=== PATIENT | female | born 1970 | race Caucasian/White ===

== ENCOUNTER 2017-05-27 13:32 | Observation (INO) | payer SELFPAY ==
[2017-05-27] VITALS (12 sets, daily range): BP systolic 129–250; BP diastolic 61–116; PULSE 63–93; RESP 16–24; TEMP 97.9–98.6; O2SAT 97–100
[2017-05-27 14:28] LABS: AUTOMATED NEUTROPHIL # 3.7 TH/MM3 (1.8-7.7); BASOPHIL % 0.8 % (0.0-2.0); EOSINOPHIL # 0.2 TH/MM3 (0-0.4); EOSINOPHIL % 2.7 % (0.0-4.0); HEMATOCRIT 43.3 % (35.0-46.0); HEMO FLAGS DIFF FINAL; LYMPH % 27.1 % (9.0-44.0); LYMPHOCYTE # 1.6 TH/MM3 (1.0-4.8); MEAN CELL VOLUME 98.5 FL (80.0-100.0); MEAN CORPUSCULAR HEMOGLOBIN 33.9 PG (27.0-34.0); MEAN CORPUSCULAR HGB CONC 34.4 % (32.0-36.0); MONO % 7.5 % (0.0-8.0); NEUT % 61.9 % (16.0-70.0); PLATELET COUNT 250 TH/MM3 (150-450); RED BLOOD COUNT 4.39 MIL/MM3 (4.00-5.30); RED CELL DISTRIBUTION WIDTH 12.1 % (11.6-17.2); WHITE BLOOD COUNT 5.9 TH/MM3 (4.0-11.0)
[2017-05-27] MEDS ORDERED: LISI-515 PO (14:32)
[2017-05-27 14:40] LABS: APTT (PATIENT) 23.2 SEC (24.3-30.1); INTERNATIONAL NORMALIZED RATIO 0.9 RATIO; PROTHROMBIN TIME - PATIENT 10.4 SEC (9.8-11.6)
[2017-05-27 14:41] LABS: ANION GAP 5 MEQ/L (5-15); BICARBONATE 28.5 MEQ/L (21.0-32.0); BLOOD UREA NITROGEN 10 MG/DL (7-18); CHLORIDE 103 MEQ/L (98-107); GLOMERULAR FILTRATION RATE 91 ML/MIN (>89); MAGNESIUM 1.9 MG/DL (1.5-2.5); POTASSIUM 3.5 MEQ/L (3.5-5.1); SODIUM (NA) 136 MEQ/L (136-145)
[2017-05-27 14:51] LABS: CREATINE KINASE 60 U/L (26-192)
--- NOTE | 2017-05-27 14:54 | RADRPT ---
EXAM DATE/TIME: 05/27/2017 14:17 [facility] COMPARISON: No previous studies available for comparison. INDICATIONS : Chest pain, anxiety, shaking, headache today MEDICAL HISTORY : None. SURGICAL HISTORY : None. ENCOUNTER: Initial ACUITY: 1 day PAIN SCORE: 9/10 LOCATION: Bilateral chest FINDINGS: PA and lateral views of the chest demonstrate the lungs to be symmetrically aerated without evidence of mass, infiltrate or effusion. The cardiomediastinal contours are unremarkable. Osseous structure s are intact. CONCLUSION: No acute disease. Wojciech Agudelo Jr., MD on May 27, 2017 at 14:51 Board Certified Radiologist. This report was verified electronically.
[2017-05-27] MEDS ORDERED: hydrALAZINE HCL 20 MG/ML VIAL IV PUSH ONE ×2 (15:45→16:45)
--- NOTE | 2017-05-27 16:17 | PD ---
HPI Chief Complaint: Chest Pain Time Seen by Provider: 15:25 Travel History International Travel<30 days: No Contact w/Intl Traveler<30days: No Traveled to known affect area: No History of Present Illness HPI Patient is a 46-year-old female presenting to emergency department for evaluation of blurred vision, headache, chest pain. Patient states that at approximately 10:30 this morning she started feeling shaky, experience the chest and arm pain along with the blurred vision and headache she checked her blood pressure, it was elevated which it has been for the last year. Patient has been taking her 's lisinopril 20 mg at night. The pain is substernal and radiates to both of her arms. She reports the pain is a 7 out of 10. Due to the high blood pressure this morning she took an extra 30 mg of lisinopril and when that did not help she presented to the emergency department. Patient has no primary doctor, she Is a significant past medical history but has a a 20+ year history of smoking. [facility] Past Medical History Hypertension: Yes ?: Unknown Past Surgical History Surgical History: No Previous Surgery Social History Alcohol Use: Yes (6 ppd) Tobacco Use: Yes (quit 2 years ago) Substance Use: No Allergies-Medications (Allergen,Severity, Reaction): Coded Allergies: hydrocodone (Verified Allergy, Intermediate, 05/27/17) morphine (Verified Allergy, Intermediate, 05/27/17) oxycodone (Verified Allergy, Intermediate, 05/27/17) Reported Meds & Prescriptions Reported Meds & Active Scripts Active Reported Lisinopril 20 Mg Tab 20 Mg PO DAILY Review of Systems Except as stated in HPI: all other systems reviewed are Neg Eyes: Positive: Blurred Vision HENT: Positive: Headaches Cardiovascular: Positive: Chest Pain or Discomfort Respiratory: Positive: Shortness of Breath Gastrointestinal: No: Nausea, Abdominal Pain Musculoskeletal: No: Myalgias Neurologic: No: Weakness, Dizziness, Syncope Physical Exam Narrative GENERAL: Overweight, well-developed, alert female. Resting in no acute distress. SKIN: Warm and dry. HEAD: Atraumatic. Normocephalic. EYES: Pupils equal and round. No scleral icterus. No injection or drainage. ENT: No nasal bleeding or discharge. Mucous membranes pink and moist. NECK: Trachea midline. No JVD. CARDIOVASCULAR: Regular rate and rhythm. RESPIRATORY: No accessory muscle use. Clear to auscultation. Breath sounds equal bilaterally. GASTROINTESTINAL: Abdomen soft, non-tender, nondistended. Hepatic and splenic margins not palpable. MUSCULOSKELETAL: Extremities without clubbing, cyanosis, or edema. No obvious deformities. NEUROLOGICAL: Awake and alert. No obvious cranial nerve deficits. Motor grossly within normal limits. Five out of 5 muscle strength in the arms and legs. Normal speech. PSYCHIATRIC: Appropriate mood and affect; insight and judgment normal. Data Data Last Documented VS Vital Signs Date Time Temp Pulse Resp B/P (MAP) Pulse Ox O2 Delivery O2 Flow Rate FiO2 05/27/17 18:19 88 176/87 (116) 05/27/17 15:03 16 100 05/27/17 14:54 Room Air 05/27/17 13:34 98.5 Orders Orders Electrocardiogram (05/27/17 13:49) Basic Metabolic Panel (Bmp) (05/27/17 13:49) Ckmb (Isoenzyme) Profile (05/27/17 13:49) Complete Blood Count With Diff (05/27/17 13:49) Magnesium (Mg) (05/27/17 13:49) Prothrombin Time / Inr (Pt) (05/27/17 13:49) Act Partial Throm Time (Ptt) (05/27/17 13:49) Troponin I (05/27/17 13:49) Lipase (05/27/17 13:49) Chest, Pa & Lat (05/27/17 13:49) Hydralazine Inj (Apresoline Inj) (05/27/17 15:45) Ct Brain W/O Iv Contrast(Rout) (05/27/17 ) Ed Urine Pregnancytest Poc (05/27/17 16:11) Hydralazine Inj (Apresoline Inj) (05/27/17 16:45) Ketorolac Inj (Toradol Inj) (05/27/17 18:00) Diphenhydramine Inj (Benadryl Inj) (05/27/17 18:00) Admit Order (Ed Use Only) (05/27/17 18:29) Labs Laboratory Tests Test 05/27/17 14:05 White Blood Count 5.9 TH/MM3 Red Blood Count 4.39 MIL/MM3 Hemoglobin 14.9 GM/DL Hematocrit 43.3 % Mean Corpuscular Volume 98.5 FL Mean Corpuscular Hemoglobin 33.9 PG Mean Corpuscular Hemoglobin Concent 34.4 % Red Cell Distribution Width 12.1 % Platelet Count 250 TH/MM3 Mean Platelet Volume 7.7 FL Neutrophils (%) (Auto) 61.9 % Lymphocytes (%) (Auto) 27.1 % Monocytes (%) (Auto) 7.5 % Eosinophils (%) (Auto) 2.7 % Basophils (%) (Auto) 0.8 % Neutrophils # (Auto) 3.7 TH/MM3 Lymphocytes # (Auto) 1.6 TH/MM3 Monocytes # (Auto) 0.4 TH/MM3 Eosinophils # (Auto) 0.2 TH/MM3 Basophils # (Auto) 0.0 TH/MM3 CBC Comment DIFF FINAL Differential Comment Prothrombin Time 10.4 SEC Prothromb Time International Ratio 0.9 RATIO Activated Partial Thromboplast Time 23.2 SEC Blood Urea Nitrogen 10 MG/DL Creatinine 0.69 MG/DL Random Glucose 93 MG/DL Calcium Level 9.3 MG/DL Magnesium Level 1.9 MG/DL Sodium Level 136 MEQ/L Potassium Level 3.5 MEQ/L Chloride Level 103 MEQ/L Carbon Dioxide Level 28.5 MEQ/L Anion Gap 5 MEQ/L Estimat Glomerular Filtration Rate 91 ML/MIN Total Creatine Kinase 60 U/L Troponin I LESS THAN 0.02 NG/ML Lipase 82 U/L MDM Medical Decision Making Medical Screen Exam Complete: Yes Emergency Medical Condition: Yes Interpretation(s) Laboratory Tests Test 05/27/17 14:05 White Blood Count 5.9 TH/MM3 Red Blood Count 4.39 MIL/MM3 Hemoglobin 14.9 GM/DL Hematocrit 43.3 % Mean Corpuscular Volume 98.5 FL Mean Corpuscular Hemoglobin 33.9 PG Mean Corpuscular Hemoglobin Concent 34.4 % Red Cell Distribution Width 12.1 % Platelet Count 250 TH/MM3 Mean Platelet Volume 7.7 FL Neutrophils (%) (Auto) 61.9 % Lymphocytes (%) (Auto) 27.1 % Monocytes (%) (Auto) 7.5 % Eosinophils (%) (Auto) 2.7 % Basophils (%) (Auto) 0.8 % Neutrophils # (Auto) 3.7 TH/MM3 Lymphocytes # (Auto) 1.6 TH/MM3 Monocytes # (Auto) 0.4 TH/MM3 Eosinophils # (Auto) 0.2 TH/MM3 Basophils # (Auto) 0.0 TH/MM3 CBC Comment DIFF FINAL Differential Comment Prothrombin Time 10.4 SEC Prothromb Time International Ratio 0.9 RATIO Activated Partial Thromboplast Time 23.2 SEC Blood Urea Nitrogen 10 MG/DL Creatinine 0.69 MG/DL Random Glucose 93 MG/DL Calcium Level 9.3 MG/DL Magnesium Level 1.9 MG/DL Sodium Level 136 MEQ/L Potassium Level 3.5 MEQ/L Chloride Level 103 MEQ/L Carbon Dioxide Level 28.5 MEQ/L Anion Gap 5 MEQ/L Estimat Glomerular Filtration Rate 91 ML/MIN Total Creatine Kinase 60 U/L Troponin I LESS THAN 0.02 NG/ML Lipase 82 U/L Vital Signs Date Time Temp Pulse Resp B/P (MAP) Pulse Ox O2 Delivery O2 Flow Rate FiO2 05/27/17 16:06 84 184/81 (115) 05/27/17 15:51 66 172/81 (111) 05/27/17 15:03 63 16 202/89 (126) 100 05/27/17 14:54 100 Room Air 05/27/17 14:32 71 18 222/98 (139) 100 Room Air 05/27/17 13:34 98.5 93 17 250/116 (160) 100 Differential Diagnosis ACS versus USA versus hypertension versus hypertensive emergency versus metabolic abnormality versus CVA versus other Narrative Course Patient is a 46-year-old female presenting for evaluation of chest pain, headache, elevated blood pressure. She was protocol while in triage. Patient is hypertensive on arrival. Hydralazine ordered. CBC reviewed, no acute findings. Chemistry reviewed, no acute findings. Cardiac enzymes are negative 1 set. Chest x-ray which is read by radiologist shows no acute disease. CT scan of the brain is ordered and pending. Hydralazine 10 mg IV 1 dose was given, patient continues to be hypertensive and a second dose was ordered. CT of the brain which was read by the radiologist shows no acute abnormality. Despite 2 doses of hydralazine patient continues to be hypertensive however her blood pressure is improved. Patient will be admitted under observation to [facility] for chest pain and hypertensive urgency. Discussed with Dr. Varghese who accepted admission. Admit orders placed. Patient/family agreeable to plan. Diagnosis Primary Impression: Chest pain Qualified Codes: R07.9 - Chest pain, unspecified Additional Impression: Hypertensive urgency Admitting Information Admitting Physician Requests: Observation Condition: Stable Alice Duff May 27, 2017 16:17
--- NOTE | 2017-05-27 17:51 | RADRPT ---
EXAM DATE/TIME: 05/27/2017 17:41 [facility] COMPARISON: No previous studies available for comparison. INDICATIONS : Cephalgia, elevated blood pressure. RADIATION DOSE: 48.27 CTDIvol (mGy) MEDICAL HISTORY : Hypertension. SURGICAL HISTORY : None. ENCOUNTER: Initial ACUITY: 1 day PAIN SCALE: 7/10 LOCATION: cranial TECHNIQUE: Multiple contiguous axial images were obtained of the head. Using automated exposure control and adj ustment of the mA and/or kV according to patient size, radiation dose was kept as low as reasonably a chievable to obtain optimal diagnostic quality images. DICOM format image data is available electro nically for review and comparison. FINDINGS: CEREBRUM: The ventricles are normal for age. No evidence of midline shift, mass lesion, hemorrhage or acute in farction. No extra-axial fluid collections are seen. POSTERIOR FOSSA: The cerebellum and brainstem are intact. The 4th ventricle is midline. The cerebellopontine angle i s unremarkable. EXTRACRANIAL: The visualized portion of the orbits is intact. SKULL: The calvaria is intact. No evidence of skull fracture. CONCLUSION: Negative for acute process. Jem Harrington MD FACR on May 27, 2017 at 17:48 Board Certified Radiologist. This report was verified electronically.
[2017-05-27] MEDS ORDERED: KETOROLAC TROMETHAMINE 30 MG/ML (IVP) VIAL IV PUSH ONE (18:00)
[2017-05-27] MEDS ORDERED: diphenhydrAMINE HCL 50 MG/ML VIAL IV PUSH ONE (18:00)
[2017-05-27] MEDS ORDERED: LABETALOL HCL 100 MG/20 ML VIAL IV PUSH PRN (18:30)
[2017-05-27] MEDS ORDERED: NIFEdipine 30 MG SUSTAINED RELEASE TAB PO SCH (18:30)
[2017-05-27] MEDS ORDERED: LORazepam 2 MG/ML VIAL IV PUSH PRN ×4 (19:00)
[2017-05-27] MEDS ORDERED: FLUMAZENIL 0.5 MG/5 ML VIAL IV PUSH PRN (19:00)
[2017-05-27] MEDS ORDERED: LORazepam 1 MG TAB PO PRN (19:00)
[2017-05-27] MEDS ORDERED: LORazepam 2 MG TAB PO PRN (19:00)
--- NOTE | 2017-05-27 19:04 | HHI.HP ---
[facility] Primary Care Physician No Primary Care Physician Admission Diagnosis CHEST PAIN, HYPERTENSIVE URGENCY Diagnoses: Travel History International Travel<30 Days: No Contact w/Intl Traveler <30 Da: No Traveled to Known Affected Are: No History of Present Illness 46-year-old female presents to the emergency department for blurry vision, headache, chest pressure and high blood pressure. The patient reports that she started feeling ill this morning. She states she checked her blood pressure and it was "very high." She she does not have a primary care physician and has been taking her 's lisinopril 20 mg at night. The patient reports that she took an extra blood pressure pill this morning and laid down. She reports that her blood pressure did not come down and she continued to feel ill. She presented to the emergency department with a blood pressure of 250/116. Pulse 93. Pulse ox 100% on room air. EKG done in the emergency department showed normal sinus rhythm without ST segment elevations or depressions. Initial troponin less than 0.02. Review of Systems Denies fever or chills Positive blurry vision Denies sore throat and cough Positive chest pain, denies shortness of breath No abdominal pain Denies constipation/diarrhea/nausea/vomiting Denies muscle pain/weakness No rashes Past Family Social History Past Medical History None that she is aware of Past Surgical History BTL Reported Medications Lisinopril 20 mg at bedtime Allergies: Coded Allergies: hydrocodone (Verified Allergy, Intermediate, 05/27/17) morphine (Verified Allergy, Intermediate, 05/27/17) oxycodone (Verified Allergy, Intermediate, 05/27/17) Family History Both parents with significant history of cardiac disease and diabetes mellitus. Social History Quit smoking 2 years ago, has a [id number] history of smoking. Drinks a sixpack per day. Denies marijuana or illicit drugs Physical Exam Vital Signs Vital Signs Date Time Temp Pulse Resp B/P (MAP) Pulse Ox O2 Delivery O2 Flow Rate FiO2 05/27/17 18:19 88 176/87 (116) 05/27/17 17:28 175/92 (119) 05/27/17 16:58 92 189/91 (123) 05/27/17 16:06 84 184/81 (115) 05/27/17 15:51 66 172/81 (111) 05/27/17 15:03 63 16 202/89 (126) 100 05/27/17 14:54 100 Room Air 05/27/17 14:32 71 18 222/98 (139) 100 Room Air 05/27/17 13:34 98.5 93 17 250/116 (160) 100 Physical Exam GENERAL: female sitting up in bed SKIN: No rashes, ecchymoses or lesions. Cool and dry. HEAD: Atraumatic. Normocephalic. No temporal or scalp tenderness. EYES: Pupils equal round and reactive. Extraocular motions intact. No scleral icterus. No injection or drainage. ENT: Nose without bleeding, purulent drainage or septal hematoma. Throat without erythema, tonsillar hypertrophy or exudate. Uvula midline. Airway patent. NECK: Trachea midline. No JVD or lymphadenopathy. Supple, nontender, no meningeal signs. CARDIOVASCULAR: Regular rate and rhythm without murmurs, gallops, or rubs. RESPIRATORY: Clear to auscultation. Breath sounds equal bilaterally. No wheezes , rales, or rhonchi. GASTROINTESTINAL: Abdomen soft, non-tender, nondistended. No hepato-splenomegaly , or palpable masses. No guarding. MUSCULOSKELETAL: Extremities without clubbing, cyanosis, or edema. No joint tenderness, effusion, or edema noted. No calf tenderness. Negative Homans sign bilaterally. NEUROLOGICAL: Awake and alert. Cranial nerves II through XII intact. Motor and sensory grossly within normal limits. Normal speech. Laboratory Laboratory Tests Test 05/27/17 14:05 White Blood Count 5.9 Red Blood Count 4.39 Hemoglobin 14.9 Hematocrit 43.3 Mean Corpuscular Volume 98.5 Mean Corpuscular Hemoglobin 33.9 Mean Corpuscular Hemoglobin Concent 34.4 Red Cell Distribution Width 12.1 Platelet Count 250 Mean Platelet Volume 7.7 Neutrophils (%) (Auto) 61.9 Lymphocytes (%) (Auto) 27.1 Monocytes (%) (Auto) 7.5 Eosinophils (%) (Auto) 2.7 Basophils (%) (Auto) 0.8 Neutrophils # (Auto) 3.7 Lymphocytes # (Auto) 1.6 Monocytes # (Auto) 0.4 Eosinophils # (Auto) 0.2 Basophils # (Auto) 0.0 CBC Comment DIFF FINAL Differential Comment Prothrombin Time 10.4 Prothromb Time International Ratio 0.9 Activated Partial Thromboplast Time 23.2 Blood Urea Nitrogen 10 Creatinine 0.69 Random Glucose 93 Calcium Level 9.3 Magnesium Level 1.9 Sodium Level 136 Potassium Level 3.5 Chloride Level 103 Carbon Dioxide Level 28.5 Anion Gap 5 Estimat Glomerular Filtration Rate 91 Total Creatine Kinase 60 Troponin I LESS THAN 0.02 Lipase 82 Result Diagram: 05/27/17140405/27/171404 Caprini VTE Risk Assessment Caprini VTE Risk Assessment: No/Low Risk (score <= 1) Caprini Risk Assessment Model Point Value = 1 Point Value = 2 Point Value = 3 Point Value = 5 Age 41-60 Minor surgery BMI > 25 kg/m2 Swollen legs Varicose veins or History of unexplained or recurrent spontaneous Oral contraceptives or hormone replacement Sepsis (< 1 month) Serious lung disease, including pneumonia (< 1 month) Abnormal pulmonary function Acute myocardial infarction Congestive heart failure (< 1 month) History of inflammatory bowel disease Medical patient at bed rest Age 61-74 Arthroscopic surgery Major open surgery (> 45 min) Laparoscopic surgery (> 45 min) Malignancy Confined to bed (> 72 hours) Immobilizing plaster cast Central venous access Age >= 75 History of VTE Family history of VTE Factor V Leiden Prothrombin [id number] Lupus anticoagulant Anticardiolipin antibodies Elevated serum homocysteine Heparin-induced thrombocytopenia Other congenital or acquired thrombophilia Stroke (< 1 month) Elective arthroplasty Hip, pelvis, or leg fracture Acute spinal cord injury (< 1 month) Prophylaxis Regimen Total Risk Factor Score Risk Level Prophylaxis Regimen 0-1 Low Early ambulation 2 Moderate Order ONE of the following: *Sequential Compression Device (SCD) *Heparin 5000 units SQ BID 3-4 Higher Order ONE of the following medications: *Heparin 5000 units SQ TID *Enoxaparin/Lovenox 40 mg SQ daily (WT < 150 kg, CrCl > 30 mL/min) *Enoxaparin/Lovenox 30 mg SQ daily (WT < 150 kg, CrCl > 10-29 mL/min) *Enoxaparin/Lovenox 30 mg SQ BID (WT < 150 kg, CrCl > 30 mL/min) AND/OR *Sequential Compression Device (SCD) 5 or more Highest Order ONE of the following medications: *Heparin 5000 units SQ TID (Preferred with Epidurals) *Enoxaparin/Lovenox 40 mg SQ daily (WT < 150 kg, CrCl > 30 mL/min) *Enoxaparin/Lovenox 30 mg SQ daily (WT < 150 kg, CrCl > 10-29 mL/min) *Enoxaparin/Lovenox 30 mg SQ BID (WT < 150 kg, CrCl > 30 mL/min) AND *Sequential Compression Device (SCD) Assessment and Plan Assessment and Plan 46-year-old female presents with hypertensive crisis and chest pain. 1. Hypertensive crisis Patient's blood pressure responded to hydralazine 2 in the emergency department Nifedipine Labetalol when necessary Continue home lisinopril Patient will need to establish with a primary care physician and have close follow-up upon discharge 2. Chest pain EKG showed NSR, no ST segment elevations or depressions, reviewed by me Initial troponin less than 0.02 ACS rule out pending; serial troponins/EKGs 3. Alcohol abuse Patient drinks approximately 6 pack per day [place] protocol Thiamine/folate/multivitamins FEN Heart healthy diet Electrolytes: Replete when necessary SCDs Amaya Dick MD May 27, 2017 19:04
[2017-05-27 20:41] LABS: HDL CHOLESTEROL 74.8 MG/DL (40.0-60.0); LDL CHOLESTEROL 83 MG/DL (0-99)
[2017-05-27 20:43] LABS: CREATINE KINASE 67 U/L (26-192)
[2017-05-27 21:17] LABS: BACTERIA, URINE FEW /hpf; BLOOD, URINE NEG (NEG); GLUCOSE,URINE NEG (NEG); KETONE, URINE TRACE mg/dL (NEG); NITRITE,URINE NEG (NEG); SQUAMOUS EPITHELIAL CELL URINE 5 /hpf (0-5); URINE COLOR LIGHT-YELLOW (YELLW/STRAW)
[2017-05-27 22:20] LABS: MICRO ALBUMIN RANDOM URINE RAW 40.4 MG/L (0.0-30.0)
[2017-05-28] MEDS ORDERED: THIAMINE HCL 100 MG TAB PO SCH (09:00)
[2017-05-28] MEDS ORDERED: MULTIVITAMINS/MINERALS THERAPEUTIC TAB PO SCH (09:00)
[2017-05-28] MEDS ORDERED: LISINOPRIL 20 MG TAB PO SCH (09:00)
[2017-05-28] MEDS ORDERED: FOLIC ACID 1 MG TAB PO SCH (09:00)
--- NOTE | 2017-05-28 17:55 | EKG ---
Date Performed: 05/27/2017 Time Performed: 14:35:59 PTAGE: 46 years EKG: Sinus rhythm NORMAL ECG NO PREVIOUS TRACING DOCTOR: Shira Childs Interpretating Date/Time 05/28/2017 17:54:53
--- NOTE | 2017-05-28 17:56 | EKG ---
Date Performed: 05/27/2017 Time Performed: 20:03:23 PTAGE: 46 years EKG: Sinus rhythm Since previous tracing, no significant change noted NORMAL ECG PREVIOUS TRACING : 05/27/2017 14.35 DOCTOR: Shira Childs Interpretating Date/Time 05/28/2017 17:55:07
== END 2017-05-27 21:40 | disposition left against medical advice (07) ==
LOC: NEPE 13:32 → NEDA 18:31 → N04A 20:42
PROVIDERS: ADMIT Hospitalist; ATTEND Hospitalist
DX: I16.0 Hypertensive urgency (principal); R07.9 Chest pain, unspecified; F10.10 Alcohol abuse, uncomplicated; R51 Headache; H53.8 Other visual disturbances; Z87.891 Personal history of nicotine dependence; I10 Essential (primary) hypertension
CPT/HCPCS: 70450; 71020; 80048; 80061; 81001; 82043; 82550; 83690; 83735; 84244; 84484; 84703; 85025; 85610; 85730; 93005; 96374; 96375; 96376; 99285; G0378; J0360; J1200; J1885